=== PATIENT | male | born 1985 | race Caucasian/White ===

== ENCOUNTER 2016-09-04 13:25 | Emergency (ER) | payer SELFPAY ==
[2016-09-04 15:21] LABS: BASOPHIL# 0.1 X 10^3uL (0.0-0.1); BASOPHILS 0.7 % (0.0-2.0); EOSINOPHILS 1.6 % (0.0-6.0); EOSINOPHILS# 0.2 X 10^3uL (0.0-0.4); HEMOGLOBIN 15.4 g/dL (14.0-18.0); LYMPHOCYTES 27.7 % (20.0-40.0); LYMPHOCYTES# 2.6 X 10^3uL (0.8-3.8); MEAN CELL VOLUME 86.7 fL (80.0-100.0); MEAN CORPUS. HGB CONCENTRATION 34.2 g/dL (32.0-36.0); MEAN CORPUSCULAR HEMOGLOBIN 29.6 pg (29.0-35.0); MONOCYTES 7.5 % (2.0-10.0); MONOCYTES# 0.7 X 10^3uL (0.2-1.0); NEUTROPHILS 62.5 % (54.0-75.0); NEUTROPHILS# 5.8 X 10^3uL (2.6-6.7); RED BLOOD COUNT 5.2 X 10^6uL (4.20-6.10); RED CELL DISTRIBUTION WIDTH 12.6 % (11.5-14.5); WHITE BLOOD COUNT 9.4 X 10^3uL (3.9-10.7)
--- NOTE | 2016-09-04 16:41 | ER NURSING DOCUMENTATION ---
[facility]urse[facility] Name:Jimmie Leon Age:31 yrs Sex:Male :1985 Arrival Date:09/04/2016 Time:13:25 BedTrauma-B Private MD: Diagnosis:Finger Laceration Presentation: 09/04 13:30 Presenting complaint: Patient states: pt states that he was bitten by a watermocisen on st August 12, spent 2 week sin the ICU and received a skin graft. pt is concerned that it was black this AM when he was changing the dressing. Transition of care: Home. 13:30 Method Of Arrival: Private Vehicle st 13:40 Acuity: AGGIE 2 st Triage Assessment: 13:30 General: Appears in no apparent distress, Behavior is cooperative. Pain: Complains of st pain in palmar aspect of middle phalanx of right index finger and palmar aspect of proxima; phalanx of right index finger Pain currently is 2 out of 10 on a pain scale. Pain began 3 weeks ago. Cardiovascular: No deficits noted. Respiratory: No deficits noted. GI: No deficits noted. Injury Description: pt has a blackened graft to the right index finger. pt has feeling in the tip of the finger and over the graft area. there is some reddened skin around the area that looks to be healing well. no signs of infection present. Historical: - Allergies: No known drug Allergies; - Home Meds: 1. None - PMHx: None; - PSHx: SKIN GRAFT; abkle; - Tetanus: < 10 years. - Ebola Screening: : Patient denies exposure to infectious person. Patient denies travel to an Ebola-affected area in the 21 days before illness onset. . - Immunization history: UTD. - Social history: Smoking status: Patient states was never smoker of tobacco. Patient uses alcohol occasionally. a vaperiser., marijuana. Screenin:00 Infectious Disease Risk None. Abuse screen: Denies threats or abuse. Denies injuries st from another. Nutritional screening: No deficits noted. Assessment: 14:50 General: Appears pt resting quielty.. st 15:38 General: pt appears to be sleeping. . st Vital Signs: 13:33 BP 121 / 70 (auto/); Pulse 108; Resp 16; Temp 98.6; Pulse Ox 96% on R/A; Pain 2/10; st 13:37 Pulse Ox 94% ; st 16:07 Pulse 93; Pulse Ox 94% on R/A; Pain 2/10; st ED Course: 13:28 Patient arrived in ED. ama 13:40 Vivi Plaza, RN is Primary Nurse. st 13:[address] 14:12 Murphy Parks MD is Attending Physician. tl1 14:45 Labs drawn. (by ED staff). st 15:00 Valuables Remains with patient. st 16:26 Wound care was dressed with oil emulsion dressing. cling, Tube Gauze Telfa. st Administered Medications: No medications were administered Outcome: 16:20 Discharge ordered by . tl1 16:40 Discharged to home ambulatory. st 16:40 Condition: improved 16:40 Discharge instructions given to patient, significant other, Instructed on discharge instructions, follow up and referral plans. wound care. 16:40 Patient [address] the ED. st 04/02 10:01 Discharge F/U Call: Unable to reach: non-working number [id number] Signatures: Vivi Plaza, RN Chari Lion RN RN Bryan Pham, Reg Reg Murphy Gonzales MD MD tl1
--- NOTE | 2016-09-04 16:41 | ER PHYSICIAN DOCUMENTATION ---
Physician Documentation [facility] Name:Jimmie Leon Age:31 yrs Sex:Male :1985 Arrival Date:09/04/2016 Time:13:25 BedTrauma-B Private MD: Murphy Lugo Disposition: 09/05 14:13 Chart complete. tl1 Disposition: 09/04/16 16:20 Discharged to Home/Self Care. Impression: Finger Laceration. - Condition is Good. - Discharge Instructions: FINGER LACERATION - LACERATION, Hand. - Medical Reconciliation form form. - Follow up: Private Physician; When: 2 - 3 days; Reason: Recheck today's complaints, Continuance of care. - Problem is an ongoing problem. - Symptoms are unchanged. - Notes: CALL DR FLOYD FIRST THING TUESDAY TO MAKE AN APPOINTMENT TO BE SEEN WITHIN 3-4 DAYS. HPI: 09/04 13:40 This 31 yrs old Male presents to ER via Private Vehicle with complaints of tl1 skin graft problem. 13:40 On 08/12 he was bitten in [place] by a [place] snake that he was trying to catch. He tl1 had a subsequent serious injury to the volar aspect of his right index finger proximal phalanx with development of a large necrotic blister. On 08/20 he had a full thickness skin graft by Dr Beck . He has since moved to [place] and now is concerned that the graft is doing poorly. It is black and he is worried that he needs prompt care. Denies f/c/s or ascending red streaks or change in the redness and swelling in his finger that has been present for 2 weeks.. Historical: - Allergies: No known drug Allergies; - Home Meds: 1. None - PMHx: None; - PSHx: SKIN GRAFT; abkle; - Tetanus: < 10 years. - Ebola Screening: : Patient denies exposure to infectious person. Patient denies travel to an Ebola-affected area in the 21 days before illness onset. . - Immunization history: UTD. - Social history: Smoking status: Patient states was never smoker of tobacco. Patient uses alcohol occasionally. a vaperiser., marijuana. ROS: 14:30 MS/extremity: Positive for NECROTIC SKIN GRAFT.. tl1 14:30 All other systems are negative. Exam: 14:30 Constitutional: This is a well developed, well nourished patient who is awake, alert, tl1 and in no acute distress. 14:30 Cardiovascular: Rate: normal. 14:30 Respiratory: Respirations: normal. 14:30 Musculoskeletal/extremity: Extremities: grossly normal except: noted in the palmar aspect of proxima; phalanx of right index finger: 3 X 3 CM irregularly shaped skin graft that is black centrally with some very dark green discoloration around the edges. There is a moderate amount of swelling and some mild erythema mostly proximally. He has limited flexion and extension of the PIP and DIP joints. Distal cap refill is 2 seconds.. 14:30 Skin: SEE ABOVE. Vital Signs: 13:33 BP 121 / 70 (auto/); Pulse 108; Resp 16; Temp 98.6; Pulse Ox 96% on R/A; Pain 2/10; st 13:37 Pulse Ox 94% ; st 16:07 Pulse 93; Pulse Ox 94% on R/A; Pain 2/10; st MDM: 13:55 Patient medically screened. tl1 16:20 Data reviewed: vital signs, nurses notes, old medical records, I spoke with his hand tl1 surgeon, Dr Beck, in [place], and with the [facility] hand surgeon insulation worker apprentice, Dr Marco Floyd . Dr Floyd kindly agreed to See Mr Leon early next week for consideration of the next step. In the interim, I asked Mr Leon to keep the finger clean and dry, and to work on flexion and extension of the finger several times a day to maintain and improve the ROM of the PIP AND DIP joints. He was placed in a tube gauze / Xeroform dressing and asked to leave that on until he follows up with Dr Floyd., and as a result, I will discharge patient. 09/04 15:17 Order name: C-REACTIVE PROTEIN; Complete Time: 16:12 EDMS 09/04 16:08 Interpretation: Normal: C-REACTIVE PROTEIN 7.0. tl1 09/04 15:26 Order name: CBC AUTO DIF, MDIF/RMOR IF IND; Complete Time: 16:12 EDMS 09/04 16:09 Interpretation: Normal: WHITE BLOOD COUNT 9.4; HEMOGLOBIN 15.4; HEMATOCRIT 45.0; tl1 PLATELET COUNT 326. 09/04 15:26 Order name: ERYTHROCYTE SEDIMENTATION RATE; Complete Time: 16:12 EDMS 09/04 16:09 Interpretation: Normal: ERYTHROCYTE SEDIMENTATION RATE 4. tl1 Dispensed Medications: No medications were administered Signatures: Vivi Plaza RN RN st Leigh, Tom, MD MD tl1
== END 2016-09-04 16:40 | disposition home or self-care (01) ==
LOC: ER 13:25
DX: T86.828 Other complications of skin graft (allograft) (autograft) (principal); M79.89 Other specified soft tissue disorders; S61.250D Open bite of right index finger without damage to nail, subsequent encounter; X58.XXXD Exposure to other specified factors, subsequent encounter
CPT/HCPCS: 85025; 85651; 86140; 99283